=== PATIENT | male | born 1995 | race Caucasian/White ===

== ENCOUNTER → 2024-02-12 10:27 | Outpatient (REF) | payer OTHER, SELFPAY | LOC: RAD 10:27 | PROVIDERS: ATTENDING PHYSICIAN Surgery; FAMILY PHYSICIAN Family Medicine | DX: K21.00 Gastro-esophageal reflux disease with esophagitis, without bleeding (principal) | CPT/HCPCS: 74246 ==

== ENCOUNTER 2024-02-15 06:17 | Day surgery (SDC) | payer OTHER, SELFPAY ==
[2024-02-05 10:09] LABS: Hematocrit 42.7 % (39.0-52.0); Mean Corp Hgb Conc. 35.1 g/dL (33.0-37.0); Mean Corpuscular Hgb 31.6 pg (27.0-31.0); Mean Corpuscular Volume 89.9 fL (80.0-94.0); Platelet Count 224 10^3/uL (130-400); Red Blood Cell Count 4.75 10^6/uL (4.70-6.10); Red Cell Dist. Width 11.8 % (11.5-14.5); White Blood Cell Count 4.4 10^3/uL (4.8-10.8)
[2024-02-05 10:35] LABS: Blood Urea Nitrogen 19 mg/dl (9-20); Carbon Dioxide 30 mmol/L (22-30); Chloride 103 mmol/L (98-107); Glucose 80 mg/dl (70-99); Potassium 4.8 mmol/L (3.5-5.1); Sodium 141 mmol/L (135-145); eGFR > 60.00
[2024-02-05 13:49] VITALS: BMI 21.4
[2024-02-15] VITALS (15 sets, daily range): BP systolic 116–135; BP diastolic 64–85; BMI 21.4
[2024-02-15] MEDS: TYLENOL 1000 MG PO (06:27)
[2024-02-15] MEDS: NORMOSOL-R/PLASMALYTE-A 1000 IV ×3 (06:34→16:30)
--- NOTE | 2024-02-15 10:13 | W.IMMPOSTOP ---
Addendum entered and electronically signed by Omar Schultz MD 03/07/24 12:59:
[facility]# [id number]
Original Note:
Surgical Immed Post Op Note
-
Primary Surgeon: Antoine
Assisting Surgeon: MYRON Brenner
Pre-op Diagnosis: GERD
Post-op Diagnosis: GERD
Procedure Performed: Laparoscopic Wolf fundoplication
Anesthesia Type: General
Specimen / Cultures: None
Estimated Blood Loss: 7 cc
Complications: None
Operative Findings:
1. > 3 cm esophageal length, no pleural violation, bl vagi identified
2. Posterior crural closure using 0 silk x2
3. 2 cm loose floppy Wolf fundoplication over 60 fr Bougie
[2024-02-15] MEDS: DILAUDID 0.5 MG IV ×2 (11:31→22:40)
--- NOTE | 2024-02-15 12:03 | PTCARENOTE ---
Patient received from PACU in bed; IVF infusing; Patient received on 2L NC, now on room air with oxygen saturation at 98%; Six laparoscopic sites open to air with glue; Patient states pain is mild but tolerable; Patient denies nausea/vomiting at
this time; IVF infusing; Call shen within reach; Bed in lowest position, wheels locked; Assessment ongoing
[2024-02-15] MEDS: OFIRMEV 100 IV ×2 (13:28→18:01)
[2024-02-16] MEDS: OFIRMEV 100 IV ×2 (01:24→08:20)
[2024-02-16] MEDS: NORMOSOL-R/PLASMALYTE-A 1000 IV ×2 (01:52→12:30)
[2024-02-16 03:14] VITALS: BP 128/79
[2024-02-16 07:01] LABS: Hematocrit 41.4 % (39.0-52.0); Hemoglobin 14.9 g/dL (13.0-18.0); Mean Corpuscular Hgb 31.7 pg (27.0-31.0); Mean Corpuscular Volume 88.1 fL (80.0-94.0); Mean Platelet Volume 10.2 fL (7.4-10.4); Platelet Count 241 10^3/uL (130-400); Red Cell Dist. Width 11.6 % (11.5-14.5)
[2024-02-16 07:15] VITALS: BP 132/81
[2024-02-16 07:22] LABS: Blood Urea Nitrogen 11 mg/dl (9-20); Calcium 9.7 mg/dl (8.4-10.2); Carbon Dioxide 27 mmol/L (22-30); Chloride 101 mmol/L (98-107); Estimated Creatinine Clearance > 125 ml/min; Glucose 81 mg/dl (70-99); Potassium 3.9 mmol/L (3.5-5.1); Sodium 140 mmol/L (135-145); eGFR > 60.00
[2024-02-16] MEDS: DILAUDID 0.5 MG IV (08:22)
--- NOTE | 2024-02-16 08:34 | W.PN.GS2 ---
Addendum entered and electronically signed by Bola Ross MD 02/16/24 14:41:
I saw and examined the patient.
The Gameplay Programmer's note was reviewed and I agree with the note.
Comment: Doing well, asking to go home. Ambulating, denies pain, denies nausea, sue CLD. Exam approp, incisions cdi. Plan to adv to fulls, if he tolerates he can be DC'ed on FLD and adv at home on his own in 2-3 days.
Original Note:
Today's Communication / Plan
-
Trial of clears
Assessment / Plan
-
28 yo male presenting for surgical management of severe GERD now POD #1 Laparoscopic Wolf fundoplication
AFVSS
Labs stable post op, mild reactive leukocytosis
--Trial of clears
--D/C IVF once tolerating PO intake
--Analgesics prn
--OOB/Ambulate
--Ok to shower
--Lovenox sq and SCDs while in bed for VTE ppx
Subjective Data
-
Date of Service: February 16, 2024
Patient seen and examined at bedside. OOB ambulating. Some incisional soreness and soreness in shoulders. Occasional belching. Not yet passing flatus. Denies n/v.
Objective Data
-
Intake and Output
02/15/24 02/16/24 02/17/24
06:59 06:59 06:59
Intake Total 2300 / 2300
Output Total 500 / 500
Balance 1800 / 1800
Intake:
IV fluids (Total) 2099 / 2099
normosol 100 / 100
IV piggybacks 200 / 200
Output:
Urine, Pop 100 / 100
Urine, Voided 400 / 400
Vital Signs
Temp Pulse Resp BP Pulse Ox
97.9 F 54 16 132/81 97
02/16/24 07:15 02/16/24 07:15 02/16/24 07:15 02/16/24 07:15 02/16/24 07:15
Lab Results
02/16/24 05:34
02/16/24 05:34
Calcium 9.7 mg/dl (8.4-10.2) 02/16/24 05:34
Physical Exam
-
NAD
ABD soft, mild incisional tenderness, nd
Incisions well approximated with intact glue, no erythema
--- NOTE | 2024-02-16 13:28 | CM ---
Patient seen at bedside. Patient stated that he is going to call for a ride home. Patient stated that he will go to his father's home in [facility] and that he did not anticipate any further needs. Patient indicated that he would review discharge plan
with nursing. CM will continue to follow for discharge planning needs.
Plan; home with no needs anticipated.
[2024-02-16 15:22] VITALS: BP 132/83
--- NOTE | 2024-02-16 16:30 | W.DS.TRANS ---
DC Summary - Banking Center Manager
-
Discharge Instructions:
Sleep Apnea Risk Low
Discharge Diagnosis/Procedures Fundoplication surgery
Diet Other diet
Additional Diets Full liquid diet to start with protein shakes
and advance slowly to soft solid foods as per
your dietary handout from your surgeon
Activity No strenuous activity
Additional Activity Do not lift over 15-20lbs for the next 2-3 weeks
Driving Restrictions No driving for 24 hours
Bathing Restrictions OK to Shower
Wound Care Wash incisions gently with soap and water. Allow
the glue to flake off on its own over the next
2-3 weeks.
Instructions:
Stand-Alone Forms:
Changes to Home Medications: No
Discharge Medications:
DC Medications w/original date entered in [employer]
Medical Marijuana 1 dose inhalation DAILY 02/06/24
acetaminophen 325 mg tablet 650 mg (2 x 325 mg) PO Q4HPRN PRN mild pain #1 tab 02/16/24
ibuprofen 200 mg tablet 400 - 600 mg (2 - 3 x 200 mg) PO Q6HPRN PRN moderate pain #1 tab 02/16/24
oxycodone 5 mg tablet 5 mg PO Q4HPRN PRN breakthrough/severe pain #10 tabs 02/16/24
Home Medication Changes
Pending Results: No
== END 2024-02-16 15:57 | disposition home or self-care (01) ==
LOC: SDS 06:17
PROVIDERS: ATTENDING PHYSICIAN Surgery; FAMILY PHYSICIAN Family Medicine
DX: K21.9 Gastro-esophageal reflux disease without esophagitis (principal); R13.10 Dysphagia, unspecified; Z86.59 Personal history of other mental and behavioral disorders
CPT/HCPCS: 43280; 36415; 80048; 85027; 93005